=== PATIENT | female | born 2000 | race Caucasian/White ===

== ENCOUNTER 2018-01-17 10:01 | Emergency (ER) | payer BC, SELFPAY ==
[2018-01-17 10:44] LABS: Absolute Lymphocytes (CBC) 1.6 K/uL (0.7-4.9); Absolute Monocytes 0.3 K/uL (0.1-1.3); Basophils % 0.3 % (0-1.3); Eosinophils % 0.1 % (0-4.4); Hematocrit 44.6 % (36.0-45.0); Lymphocytes % 18.2 % (15.3-44.8); MCV 83.5 fL (80-100); MPV 7.9 fL (7.6-11.3); Monocytes % 3.1 % (3.3-12.3); RBC Red Blood Cell Count 5.34 M/uL (3.86-4.86)
[2018-01-17 11:01] LABS: ALT/SGPT 22 U/L (12-78); AST/SGOT 13 U/L (15-37); Albumin 4.4 g/dL (3.4-5.0); Alkaline Phosphatase 81 U/L (45-117); BUN Blood Urea Nitrogen 13 mg/dL (7-18); Bicarbonate 25 mmol/L (21-32); Bilirubin Direct 0.2 mg/dL (0-0.2); Bilirubin Total 0.9 mg/dL (0.2-1.0); Glucose Level 99 mg/dL (74-106); Lipase 158 U/L (73-393); Potassium 4.1 mmol/L (3.5-5.1); Protein, Total 7.9 g/dL (6.4-8.2); Sodium Level 140 mmol/L (136-145)
[2018-01-17] MEDS ORDERED: KETOROLAC 30 MG/ML INJ ONE (11:20)
[2018-01-17] MEDS ORDERED: NA CHLORIDE 0.9% 1,000 ML ONE (11:20)
--- NOTE | 2018-01-17 11:31 | EDPHYS ---
Physician Documentation [facility] Name: Honey Marie Age: 17 yrs Sex: Female : 2000 Arrival Date: 01/17/2018 Time: 10:04 Bed 13 Private MD: Javid Vu H ED Physician Ambrocio Villanueva HPI: 01/17 11:18 This 17 yrs old Female presents to ER via Ambulatory with complaints of kb Abdominal Pain. 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 - Social history:: Smoking status: Patient/guardian denies using tobacco. - Ebola Screening: : No symptoms or risks identified at this time. ROS: 11:16 Constitutional: Negative for fever, chills, and weight loss, Cardiovascular: Negative kb for chest pain, palpitations, and edema, Respiratory: Negative for shortness of breath, cough, wheezing, and pleuritic chest pain, Back: Negative for injury and pain, : Negative for injury, bleeding, discharge, and swelling, MS/Extremity: Negative for injury and deformity, Skin: Negative for injury, rash, and discoloration, Neuro: Negative for headache, weakness, numbness, tingling, and seizure. 11:16 Abdomen/GI: Positive for abdominal pain, Negative for nausea, vomiting, and diarrhea, constipation, abdominal cramps, abdominal distension, anorexia. Exam: 11:16 Constitutional: This is a well developed, well nourished patient who is awake, alert, kb and in no acute distress. Head/Face: Normocephalic, atraumatic. Chest/axilla: Normal chest wall appearance and motion. Nontender with no deformity. No lesions are appreciated. Cardiovascular: Regular rate and rhythm with a normal S1 and S2. No gallops, murmurs, or rubs. Normal PMI, no JVD. No pulse deficits. Respiratory: Lungs have equal breath sounds bilaterally, clear to auscultation and percussion. No rales, rhonchi or wheezes noted. No increased work of breathing, no retractions or nasal flaring. Abdomen/GI: Soft, non-tender, with normal bowel sounds. No distension or tympany. No guarding or rebound. No evidence of tenderness throughout. Back: No spinal tenderness. No costovertebral tenderness. Full range of motion. Skin: Warm, dry with normal turgor. Normal color with no rashes, no lesions, and no evidence of cellulitis. MS/ Extremity: Pulses equal, no cyanosis. Neurovascular intact. Full, normal range of motion. Neuro: Awake and alert, GCS 15, oriented to person, place, time, and situation. Cranial nerves II-XII grossly intact. Motor strength 5/5 in all extremities. Sensory grossly intact. Cerebellar exam normal. Normal gait. Vital Signs: 10:07 BP 131 / 80; Pulse 72; Resp 16; Temp 98.0; Pulse Ox 100% on R/A; Weight 56.7 kg; Height la1 5 ft. 2 in. (157.48 cm); 11:57 BP 120 / 70; Pulse 89; Resp 19; Pulse Ox 99% on R/A; aj 10:07 Body Mass Index 22.86 (56.70 kg, 157.48 cm) la1 MDM: 10:09 Patient medically screened. kb 11:16 Data reviewed: vital signs, nurses notes. Data interpreted: Pulse oximetry: on room air kb is 100 %. Interpretation: normal. Counseling: I had a detailed discussion with the patient and/or guardian regarding: the historical points, exam findings, and any diagnostic results supporting the discharge/admit diagnosis, lab results, the need for outpatient follow up, a family practitioner, to return to the emergency department if symptoms worsen or persist or if there are any questions or concerns that arise at home. 01/17 10:19 Order name: Basic Metabolic Panel; Complete Time: 11:02 kb 01/17 10:19 Order name: CBC with Diff; Complete Time: 10:49 kb 01/17 10: Order name: Hepatic Function; Complete Time: 11:02 kb 01/17 10:19 Order name: Lipase; Complete Time: 11:02 kb 01/17 11:08 Order name: Urine Dipstick--Ancillary (enter results) ag 01/17 11:08 Order name: Urine --Ancillary (enter results) ag 01/17 10:19 Order name: IV Saline Lock; Complete Time: 10:46 kb 01/17 10:19 Order name: Labs collected and sent; Complete Time: 10:46 kb 01/17 10:19 Order name: Urine Test (obtain specimen); Complete Time: 10:46 kb 01/17 10:19 Order name: Urine Dipstick-Ancillary (obtain specimen); Complete Time: 10:46 kb Administered Medications: 11:16 Drug: NS 0.9% 1000 ml Route: IV; Rate: 1000 ml; Site: right antecubital; aj 11:58 Follow up: Response: No adverse reaction; IV Status: Completed infusion; IV Intake: aj 1000ml 11:17 Drug: TORadol 30 mg Route: IVP; Site: right antecubital; aj 11:58 Follow up: Response: No adverse reaction; Pain is decreased aj Disposition: 14:44 Co-signature as Attending Physician, Ambrocio Villanueva MD I agree with the assessment and belen plan of care. Disposition: 01/17/18 11:30 Discharged to Home. Impression: Generalized abdominal pain. - Condition is Stable. - Discharge Instructions: Abdominal Pain, Adult, [id number]. - Prescriptions for Bentyl 20 mg Oral Tablet - take 1 tablet by ORAL route every 6 hours As needed; 20 tablet. - Medication Reconciliation Form, Thank You Letter, Antibiotic Education, Prescription Opioid Use form. - Follow up: Emergency Department; When: As needed; Reason: Worsening of condition. Follow up: Private Physician; When: 2 - 3 days; Reason: Recheck today's complaints, Continuance of care, Re-evaluation by your physician. Signatures: Dispatcher [employer] EDMO Marla Calabrese, CARE ASST-C CARE ASST-Farideh Jiang RN RN aj Anderson, Corey, MD MD cha Attema, Lee RN RN la1 Corrections: (The following items were deleted from the chart) 11:59 11:30 01/17/2018 11:30 Discharged to Home. Impression: Generalized abdominal pain. aj Condition is Stable. Forms are Medication Reconciliation Form, Thank You Letter, Antibiotic Education, Prescription Opioid Use. Follow up: Emergency Department; When: As needed; Reason: Worsening of condition. Follow up: Private Physician; When: 2 - 3 days; Reason: Recheck today's complaints, Continuance of care, Re-evaluation by your physician. kb
--- NOTE | 2018-01-17 11:31 | ER ---
Nurse's Notes [facility] Name: Honey Marie Age: 17 yrs Sex: Female : 2000 Arrival Date: 01/17/2018 Time: 10:04 Bed 13 Private MD: Javid Vu H Diagnosis: Generalized abdominal pain Presentation: 01/17 10:07 Presenting complaint: Patient states: generalized abd pain since 0200, nno N/V/D. la1 Transition of care: patient was not received from another setting of care. Onset of symptoms was January 17, 2018. Risk Assessment: Do you want to hurt yourself or someone else? Patient reports no desire to harm self or others. Initial Sepsis Screen: Does the patient meet any 2 criteria? No. Patient's initial sepsis screen is negative. Does the patient have a suspected source of infection? No. Patient's initial sepsis screen is negative. Care prior to arrival: None. 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 - Social history:: Smoking status: Patient/guardian denies using tobacco. - Ebola Screening: : No symptoms or risks identified at this time. Screenin:45 Abuse screen: Denies threats or abuse. Denies injuries from another. Nutritional aj screening: No deficits noted. Tuberculosis screening: No symptoms or risk factors identified. Fall Risk None identified. Assessment: 10:37 General: Appears in no apparent distress. comfortable, Behavior is calm, cooperative, aj appropriate for age. Pain: Complains of pain in right upper quadrant, left upper quadrant, right lower quadrant and left lower quadrant. Neuro: Level of Consciousness is awake, alert, obeys commands, Oriented to person, place, time, situation, Appropriate for age. Respiratory: Airway is patent Respiratory effort is even, unlabored, Respiratory pattern is regular, symmetrical. GI: Abdomen is flat, non-distended, Bowel sounds present X 4 quads. Abd is soft and non tender X 4 quads. Reports lower abdominal pain, upper abdominal pain. Derm: Skin is intact, is healthy with good turgor, Skin is pink, warm \T\ dry. normal. 11:57 Reassessment: Patient appears in no apparent distress at this time. No changes from aj previously documented assessment. Patient and/or family updated on plan of care and expected duration. Pain level reassessed. Patient is alert, oriented x 3, equal unlabored respirations, skin warm/dry/pink. Patient states feeling better. Patient states symptoms have improved. Vital Signs: 10:07 BP 131 / 80; Pulse 72; Resp 16; Temp 98.0; Pulse Ox 100% on R/A; Weight 56.7 kg; Height la1 5 ft. 2 in. (157.48 cm); 11:57 BP 120 / 70; Pulse 89; Resp 19; Pulse Ox 99% on R/A; aj 10:07 Body Mass Index 22.86 (56.70 kg, 157.48 cm) la1 ED Course: 10:04 Patient arrived in ED. rg4 10:04 Javid Vu MD is Private Physician. rg4 10:07 Triage completed. la1 10:08 [facility]C [facility] kb 10:08 Ambrocio Villanueva MD is Attending Physician. kb 10:08 Arm band placed on left wrist. la1 10:23 Farideh Sabillon, PARTH is Primary Nurse. aj 10:45 Patient has correct armband on for positive identification. Adult w/ patient. aj 10:45 Inserted saline lock: 20 gauge in right antecubital area, using aseptic technique. aj Blood collected. 11:57 No provider procedures requiring assistance completed. Patient did not have IV access aj during this emergency room visit. intact, bleeding controlled, No redness/swelling at site. Pressure dressing applied. Administered Medications: 11:16 Drug: NS 0.9% 1000 ml Route: IV; Rate: 1000 ml; Site: right antecubital; aj 11:58 Follow up: Response: No adverse reaction; IV Status: Completed infusion; IV Intake: aj 1000ml 11:17 Drug: TORadol 30 mg Route: IVP; Site: right antecubital; aj 11:58 Follow up: Response: No adverse reaction; Pain is decreased aj Intake: 11:58 IV: 1000ml; Total: 1000ml. aj Outcome: 11:30 Discharge ordered by . kb 11:57 Discharged to home ambulatory, with family. aj 11:57 Condition: good 11:57 Discharge instructions given to patient, family, Instructed on discharge instructions, follow up and referral plans. medication usage, Demonstrated understanding of instructions, follow-up care, medications, Prescriptions given X 1. 11:59 Patient left the ED. aj Signatures: Marla Calabrese, KITTY-C KITTY-Farideh Jiang RN Gomez Yan RN RN la1 Isabella Rosas 4
[2018-01-17 19:21] LABS: Urine Blood NEGATIVE (NEG); Urine Glucose NEGATIVE (NEG); Urine Protein NEGATIVE (NEG); Urine Specific Gravity 1.015 (1.005-1.030); Urine pH 5.5 (5.0-7.0)
== END 2018-01-17 11:59 | disposition home or self-care (01) ==
LOC: ER 10:01
DX: R10.84 Generalized abdominal pain (principal)
CPT/HCPCS: 36415; 80048; 80076; 81003; 81025; 83690; 85025; 96361; 96374; 99284; J7030

== ENCOUNTER 2024-08-15 23:38 | Emergency (ER) | payer SELFPAY ==
--- OUTSIDE RECORDS SUMMARY | 2024-08-15 23:41 | XMS REPORT | Continuity of Care Document ---
Author Name Unknown Address [address] [place] [address] [place] [address] [address] [place] [address] Care Team Providers Care Customer Operations Specialist Name Role Phone [email or web address] Attending Clinician Luanna lottie [email or web address] Admitting Clinician Unavaila ble Encounters Start Date/Time End Date/Time Encounter Type Admission Type Attending Clinicians Care Facility Care Department Encounter ID Source 2023-02-04 00:00:00 2023-02-04 00:00:00 Outpatient [email or web address] [email or web address] PRIV PRIV [id number] [facility] 2023-02-03 00:00:00 2023-02-03 00:00:00 Outpatient [email or web address] [email or web address] PRIV PRIV [id number] [facility]
[2024-08-16] MEDS ORDERED: FLUCONAZOLE 100 MG TAB ONE (00:14)
[2024-08-16 00:25] LABS: Specific Gravity > 1.030 (1.005-1.030); Sqamous Epithelial <5 /HPF (None Seen); Urine Bacteria None Seen /HPF (<20); Urine Bilirubin NEGATIVE (Negative); Urine Blood Negative (Negative); Urine Clarity Clear (Clear); Urine Color Light-Yellow (Yellow); Urine Glucose NEGATIVE (Negative); Urine Ketones NEGATIVE (Negative); Urine Micro Reflex YN NO BILL MICROSCOPIC; Urine Mucus Slight /HPF (None Seen); Urine Nitrite NEGATIVE (Negative); Urine Protein NEGATIVE (Negative); Urine RBC <5 /HPF (None Seen); Urine Urobilinogen Normal (Normal); Urine WBC <5 /HPF (<5)
[2024-08-16 00:26] LABS: Specific Gravity > 1.030 (1.005-1.030)
--- NOTE | 2024-08-16 00:40 | EDPHYS ---
Physician Documentation [facility] Name: Honey Marie Age: 23 yrs Sex: Female : 2000 Arrival Date: 08/15/2024 Time: 23:38 Bed 5 Private MD: ED Physician Tim Judd HPI: 08/15 23:51 This 23 yrs old Female presents to ER via Unassigned with complaints of sp4 Vaginal Itching. 08/16 05:37 23-year-old female presents with acute vaginal irritation. Patient reports she feels sp4 like she is getting yeast infection.. 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 - Infectious Disease History:: Denies. - Social history:: Smoking status: Patient denies any tobacco usage or history of. Patient/guardian denies using alcohol, street drugs. - Family history:: not pertinent. ROS: 08/16 05:37 Constitutional: Negative for fever, chills, and weight loss, positive vaginal sp4 irritation. Positive vaginal itching All other systems are negative, Exam: 05:37 Constitutional: This is a well developed, well nourished patient who is awake, alert, sp4 and in no acute distress. Head/Face: Normocephalic, atraumatic. Eyes: Pupils equal round and reactive to light, extra-ocular motions intact. Lids and lashes normal. Conjunctiva and sclera are not injected. Cornea within normal limits. Periorbital areas with no swelling, redness, or edema. ENT: Nares patent. No nasal discharge, no septal abnormalities noted. Tympanic membranes are normal and external auditory canals are clear. Oropharynx with no redness, swelling, or masses, exudates, or evidence of obstruction, uvula midline. Mucous membranes moist. Neck: Trachea midline, no thyromegaly or masses palpated, and no cervical lymphadenopathy. Supple, full range of motion without nuchal rigidity, or vertebral point tenderness. Chest/axilla: Normal chest wall appearance and motion. Nontender with no deformity. No lesions are appreciated. Cardiovascular: Regular rate and rhythm with a normal S1 and S2. No gallops, murmurs, or rubs. Normal PMI, no JVD. No pulse deficits. Respiratory: Lungs have equal breath sounds bilaterally, clear to auscultation and percussion. No rales, rhonchi or wheezes noted. No increased work of breathing, no retractions or nasal flaring. Abdomen/GI: Soft, with normal bowel sounds. No distension or tympany. No guarding or rebound. No evidence of tenderness throughout. Back: No spinal tenderness. No costovertebral tenderness. Female : Normal external genitalia. Patient has small amount of introital irritation. No sign of significant discharge, no ulcers or lesions. 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 Normal color with no rashes, no lesions, and no evidence of cellulitis. MS/ Extremity: Pulses equal, no cyanosis. Neurovascular intact. Full, normal range of motion. Neuro: Awake and alert, GCS 15, oriented to person, place, time, and situation. Cranial nerves II-XII grossly intact. Motor strength 5/5 in all extremities. Sensory grossly intact. Psych: Awake, alert, with orientation to person, place and time. Behavior, mood, and affect are within normal limits Vital Signs: 08/15 23:55 BP 123 / 72; Pulse 55; Resp 16; Temp 98.1; Pulse Ox 100% ; Weight 57.15 kg; Height 5 bm8 ft. 2 in. ; Pain 3/10; 08/16 00:49 BP 97 / 53; Pulse 51; Resp 20; Temp 98.1; Pulse Ox 100% ; Pain 3/10; bm8 08/15 23:55 Body Mass Index 23.05 (57.15 kg, 157.48 cm) bm8 08/15 23:55 Pain Scale: Adult bm8 08/16 00:49 Pain Scale: Adult bm8 [place] Coma Score: 08/15 23:59 Eye Response: spontaneous(4). Motor Response: obeys commands(6). Verbal Response: bm8 oriented(5). Total: 15. 08/16 00:49 Eye Response: spontaneous(4). Motor Response: obeys commands(6). Verbal Response: bm8 oriented(5). Total: 15. 05:37 Eye Response: spontaneous(4). Motor Response: obeys commands(6). Verbal Response: sp4 oriented(5). Total: 15. MDM: 00:39 Medical Screening Exam initiated sp4 05:37 Differential diagnosis: stacie infection, cervicitis, dysmenorrhea, urinary tract sp4 infection, vaginosis. Data reviewed: vital signs, nurses notes. Consideration of Admission/Observation Escalation of care including admission/observation considered. ED course: Patient will be prescribed fluconazole 200 mg daily for 10 days . 08/15 23:58 Order name: Test, Urine; Complete Time: 00:38 sp4 08/15 23:58 Order name: UA W/ Microscopic; Complete Time: 00:38 sp4 08/16 00:26 Order name: Glucose, Ancillary Testing; Complete Time: 00:38 EDMS 08/16 00:04 Order name: Accucheck Blood Glucose; Complete Time: 00:16 sp4 Administered Medications: 00:22 Drug: Fluconazole PO 200 mg PO once Route: PO; lg3 00:49 Follow up: Response: No adverse reaction bm8 Disposition Summary: 08/16/24 00:39 Discharge Ordered Notes: Location: Home sp4 Problem: new sp4 Symptoms: have improved sp4 Condition: Stable sp4 Diagnosis - Acute vaginal candidiasis sp4 Followup: sp4 - With: Sarah Garcia MD - When: 7 - 10 days - Reason: Recheck today's complaints Discharge Instructions: - Discharge Summary Sheet sp4 - Vaginal Yeast Infection, Adult sp4 Forms: - Patient Portal Instructions sp4 Prescriptions: - Fluconazole 200 mg Oral tablet - take 1 tablet ORAL route once daily for 10 days; 10 tablet; Refills: 0, Product sp4 Selection Permitted Signatures: Dispatcher [employer] Mara Bahena RN RN [email or web address] Tim Judd MD MD sp4 Ervin Salinas RN RN bm8 Corrections: (The following items were deleted from the chart) 08/15 23:57 23:56 Allergies: No Known Allergies; bm8 bm8
--- NOTE | 2024-08-16 00:40 | ER ---
Nurse's Notes [facility] Name: Honey Marie Age: 23 yrs Sex: Female : 2000 Arrival Date: 08/15/2024 Time: 23:38 Bed 5 Private MD: Diagnosis: Acute vaginal candidiasis Presentation: 08/15 23:55 Chief complaint: Patient states: I think I have a yeast infection... again. This is the bm8 2nd one this month. Coronavirus screen: At this time, the client does not indicate any symptoms associated with coronavirus-19. Ebola Screen: Patient negative for fever greater than or equal to 101.5 degrees Fahrenheit, and additional compatible Ebola Virus Disease symptoms Patient denies exposure to infectious person. Patient denies travel to an Ebola-affected area in the 21 days before illness onset. No symptoms or risks identified at this time. Initial Sepsis Screen: Does the patient meet any 2 criteria? No. Patient's initial sepsis screen is negative. Does the patient have a suspected source of infection? No. Patient's initial sepsis screen is negative. Risk Assessment: Do you want to hurt yourself or someone else? Patient reports no desire to harm self or others. Onset of symptoms was August 13, 2024. 23:55 Method Of Arrival: Ambulatory bm8 23:55 Acuity: RY 4 bm8 Triage Assessment: 23:56 General: Appears in no apparent distress. comfortable, Behavior is calm, cooperative, bm8 appropriate for age. Pain: Complains of pain in groin Pain currently is 3 out of 10 on a pain scale. EENT: No deficits noted. Neuro: No deficits noted. Cardiovascular: No deficits noted. Respiratory: No deficits noted. GI: No deficits noted. : Urine is clear, Reports burning with urination, urinary frequency. Derm: No deficits noted. Musculoskeletal: No deficits noted. KETTLEMAN: 23:56 unknown bm8 Historical: - Allergies: 23:56 PENICILLINS; bm8 - Home Meds: 23:56 None [Active]; bm8 - PMHx: 23:56 None; bm8 - PSHx: 23:56 None; bm8 - Immunization history:: Adult Immunizations up to date. - Infectious Disease History:: Denies. - Social history:: Smoking status: Patient denies any tobacco usage or history of. Patient/guardian denies using alcohol, street drugs. - Family history:: not pertinent. Screenin:59 [facility] ED Fall Risk Assessment (Adult) History of falling in the last 3 months, bm8 including since admission No falls in past 3 months (0 pts) Confusion or Disorientation No (0 pts) Intoxicated or Sedated No (0 pts) Impaired Gait No (0 pts) Mobility Assist Device Used No (0 pt) Altered Elimination No (0 pt) Score/Fall Risk Level 0 - 2 = Low Risk Oriented to surroundings, Maintained a safe environment, Educated pt \T\ family on fall prevention, incl call for assistance when getting out of bed, Assessed \T\ reinforced patient's understanding of fall precautions, Hourly rounding (assess needs \T\ fall precautionary measures) done, Used ambulatory aids as needed (educated on \T\ assisted with), Used gait belt as appropriate. Abuse screen: Denies threats or abuse. Nutritional screening: No deficits noted. Tuberculosis screening: No symptoms or risk factors identified. Assessment: 08/16 00:01 Reassessment: see triage assessment. bm8 00:49 Reassessment: Patient appears in no apparent distress at this time. No changes from bm8 previously documented assessment. Patient and/or family updated on plan of care and expected duration. Pain level reassessed. Patient is alert, oriented x 3, equal unlabored respirations, skin warm/dry/pink. Vital Signs: 08/15 23:55 BP 123 / 72; Pulse 55; Resp 16; Temp 98.1; Pulse Ox 100% ; Weight 57.15 kg; Height 5 bm8 ft. 2 in. ; Pain 3/10; 08/16 00:49 BP 97 / 53; Pulse 51; Resp 20; Temp 98.1; Pulse Ox 100% ; Pain 3/10; bm8 08/15 23:55 Body Mass Index 23.05 (57.15 kg, 157.48 cm) bm8 08/15 23:55 Pain Scale: Adult bm8 08/16 00:49 Pain Scale: Adult bm8 [place] Coma Score: 08/15 23:59 Eye Response: spontaneous(4). Motor Response: obeys commands(6). Verbal Response: bm8 oriented(5). Total: 15. 08/16 00:49 Eye Response: spontaneous(4). Motor Response: obeys commands(6). Verbal Response: bm8 oriented(5). Total: 15. 05:37 Eye Response: spontaneous(4). Motor Response: obeys commands(6). Verbal Response: sp4 oriented(5). Total: 15. ED Course: 08/15 23:41 Patient arrived in ED. gm2 23:51 Tim Judd MD is Attending Physician. sp4 23:55 Ervin Salinas, RN is Primary Nurse. bm8 23:56 Triage completed. bm8 23:56 Arm band placed on right wrist. bm8 23:59 Patient has correct armband on for positive identification. Bed in low position. Call bm8 light in reach. Client placed on continuous cardiac and pulse oximetry monitoring. NIBP monitoring applied. Pulse ox on. NIBP on. Door closed. Noise minimized. Warm blanket given. Pillow given. Verbal reassurance given. Head of bed elevated. 23:59 No provider procedures requiring assistance completed. Patient did not have IV access bm8 during this emergency room visit. 05 00:39 Sarah Garcia MD is Referral Physician. sp4 00:49 Provided Education on: post er care. bm8 00:49 Patient maintains SpO2 saturation greater than 95% on room air. bm8 Administered Medications: 00:22 Drug: Fluconazole PO 200 mg PO once Route: PO; lg3 00:49 Follow up: Response: No adverse reaction bm8 Medication: 08/15 23:59 VIS not applicable for this client. bm8 Outcome: 08/16 00:39 Discharge ordered by . sp4 00:49 Discharged to home ambulatory, with family, bm8 00:49 Condition: stable 00:49 Discharge instructions given to patient, family, Instructed on discharge instructions, follow up and referral plans. no drinking with medication, no driving heavy equipment, medication usage, Demonstrated understanding of instructions, follow-up care, medications, 00:53 Patient left the ED. bm8 Signatures: Mara Solorzano RN RN lg3 Potepalov, Sergey, MD MD sp4 Susan Eller gm2 Ervin Salinas, RN RN bm8 Corrections: (The following items were deleted from the chart) 08/15 23:57 23:56 Allergies: No Known Allergies; bm8 bm8
[2024-08-16 00:57] VITALS: TEMP 98.1; O2SAT 100
[2024-08-16 00:59] VITALS: BP 97/53
== END 2024-08-16 00:53 | disposition home or self-care (01) ==
LOC: ER 23:38
DX: B37.31 Acute candidiasis of vulva and vagina (principal)
CPT/HCPCS: 81001; 81025; 82947; 99284

== ENCOUNTER 2025-01-10 04:07 | Emergency (ER) | payer SELFPAY ==
[2025-01-10] MEDS ORDERED: NA CHLORIDE 0.9% 1,000 ML ONE ×2 (04:36→05:11)
[2025-01-10] MEDS ORDERED: ONDANSETRON 4 MG/2 ML VIAL ONE (04:36)
[2025-01-10] MEDS ORDERED: METOCLOPRAMIDE 10 MG/2mL INJ ONE (05:10)
[2025-01-10] MEDS ORDERED: KETOROLAC 30 MG/ML INJ ONE (05:10)
[2025-01-10] MEDS ORDERED: FAMOTIDINE 20 MG/2 ML VIAL IV ONE (05:11)
[2025-01-10] MEDS ORDERED: DICYCLOMINE HCL 20 MG/2 ML AMP IM ONE (05:11)
[2025-01-10 05:40] LABS: Influenza A Ag Negative; Influenza B Ag Negative; SARS-CoV-2 Antigen Rapid Res Negative (Negative)
[2025-01-10 05:56] LABS: METHAMPHETAM NEGATIVE (NEGATIVE); THC Cannibis NEGATIVE (NEGATIVE)
[2025-01-10 06:45] LABS: Urine Microscopic Reflex YN NO UMIC
[2025-01-10 06:51] LABS: ALT/SGPT 26.0 U/L (13-56); AST/SGOT 16.0 U/L (15-37); Absolute Lymphocytes (CBC) 1.2 K/uL (0.7-4.9); Albumin 4.1 g/dL (3.4-5.0); Albumin/Globulin Ratio 1.2 (1.1-1.8); Alkaline Phosphatase 62.0 U/L (45-117); Anion Gap 14.7 mEq/L (5.0-15.0); BUN Blood Urea Nitrogen 16.0 mg/dL (7-18); Globulin 3.3 g/dL (2.3-3.5); Glucose Level 131.0 mg/dL (74-106); Hematocrit 42.8 % (36.0-45.0); Hemoglobin 14.9 g/dL (12.0-15.0); Lipase 33.0 U/L (13-75); MCH 29.8 pg (27.0-35.0); MCHC 34.9 g/dL (32.0-36.0); MCV 85.3 fL (80-100); MPV 8.7 fL (7.6-11.3); Nucleated RBC Absolute Count 0.0 (0-0); Nucleated Red Blood Cells % 0.1 % (0-0); Potassium 3.7 mEq/L (3.5-5.1); RBC Red Blood Cell Count 5.01 M/uL (3.86-4.86); White Blood Count 18.60 thou/uL (4.3-10.9)
--- NOTE | 2025-01-10 06:57 | ER ---
Nurse's Notes [facility] Name: Honey Marie Age: 24 yrs Sex: Female : 2000 Arrival Date: 01/10/2025 Time: 04:07 Bed 18 Private MD: Diagnosis: Acute viral gastroenteritis, acute nausea and vomiting Presentation: 01/10 04:42 Chief complaint: Patient states: started vomiting at 9 pm. Coronavirus screen: Client vc1 denies travel out of the [place] in the last 14 days. At this time, the client does not indicate any symptoms associated with coronavirus-19. Ebola Screen: Patient negative for fever greater than or equal to 101.5 degrees Fahrenheit, and additional compatible Ebola Virus Disease symptoms Patient denies exposure to infectious person. Patient denies travel to an Ebola-affected area in the 21 days before illness onset. No symptoms or risks identified at this time. Initial Sepsis Screen: Does the patient meet any 2 criteria? No. Patient's initial sepsis screen is negative. Does the patient have a suspected source of infection? No. Patient's initial sepsis screen is negative. Risk Assessment: Do you want to hurt yourself or someone else? Patient reports no desire to harm self or others. Onset of symptoms was January 09, 2025 at 21:00. 04:42 Method Of Arrival: Ambulatory vc1 04:42 Acuity: RY 3 vc1 Triage Assessment: 04:47 General: Appears in no apparent distress. uncomfortable, Behavior is calm, cooperative, vc1 appropriate for age. Pain: Denies pain. EENT: No deficits noted. No signs and/or symptoms were reported regarding the EENT system. Neuro: Level of Consciousness is awake, alert, obeys commands, Oriented to person, place, time, situation, Appropriate for age. Cardiovascular: Capillary refill < 3 seconds Patient's skin is warm and dry. Respiratory: Airway is patent Respiratory effort is even, unlabored, Respiratory pattern is regular, symmetrical. GI: Abdomen is flat, Pt is actively vomiting Reports vomiting. : No deficits noted. No signs and/or symptoms were reported regarding the genitourinary system. Derm: Skin is intact, is healthy with good turgor, Skin is dry, Skin is normal, Skin temperature is warm. Musculoskeletal: Circulation, motion, and sensation intact. Range of motion: intact in all extremities. 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 - Infectious Disease History:: Denies. - Social history:: Smoking status: Patient denies any tobacco usage or history of. - Family history:: not pertinent. Screenin:45 [facility] ED Fall Risk Assessment (Adult) History of falling in the last 3 months, vc1 including since admission No falls in past 3 months (0 pts) Confusion or Disorientation No (0 pts) Intoxicated or Sedated No (0 pts) Impaired Gait No (0 pts) Mobility Assist Device Used No (0 pt) Altered Elimination No (0 pt) Score/Fall Risk Level 0 - 2 = Low Risk Oriented to surroundings, Maintained a safe environment, Educated pt \T\ family on fall prevention, incl call for assistance when getting out of bed, Assessed \T\ reinforced patient's understanding of fall precautions, Hourly rounding (assess needs \T\ fall precautionary measures) done. Abuse screen: Denies threats or abuse. Nutritional screening: No deficits noted. Tuberculosis screening: No symptoms or risk factors identified. Assessment: 04:51 Pain: Complains of pain in generalized body aches and abdominal pain Pain does not tb4 radiate. Pain currently is 8 out of 10 on a pain scale. Quality of pain is described as crampy, Pain began suddenly. Neuro: Level of Consciousness is awake, alert, obeys commands, Oriented to person, place, time, situation, Moves all extremities. Full function Gait is steady, Speech is normal, Facial symmetry appears normal. Cardiovascular: Patient's skin is warm and dry. Respiratory: Airway is patent Respiratory effort is even, unlabored, Respiratory pattern is regular, symmetrical. GI: Abdomen is flat, non-distended, Bowel sounds present X 4 quads. Reports cramping, diarrhea, nausea, vomiting. : No deficits noted. No signs and/or symptoms were reported regarding the genitourinary system. EENT: No deficits noted. No signs and/or symptoms were reported regarding the EENT system. Derm: No deficits noted. No signs and/or symptoms reported regarding the dermatologic system. Skin is intact, is healthy with good turgor, Skin is dry, Skin is normal, Skin temperature is warm. Musculoskeletal: No deficits noted. No signs and/or symptoms reported regarding the musculoskeletal system. Circulation, motion, and sensation intact. Range of motion: intact in all extremities. 05:34 General: Appears uncomfortable, Behavior is calm, cooperative. tb4 Vital Signs: 04:42 Pulse 94; Resp 16; Temp 98.5; Pulse Ox 99% ; Weight 57.15 kg; Height 5 ft. 2 in. ; vc1 05:00 BP 119 / 77; Pulse 56; Resp 17; Pulse Ox 99% on R/A; Weight 57.61 kg; Height 5 ft. 2 tb4 in. ; Pain 8/10; 06:16 BP 106 / 64; Pulse 91; Resp 17; Pulse Ox 99% on R/A; Pain 0/10; tb4 07:15 BP 112 / 62; Pulse 70; Resp 16; Pulse Ox 99% on R/A; ar8 05:00 Body Mass Index 23.23 (57.61 kg, 157.48 cm) tb4 05:00 Pain Scale: Adult tb4 06:16 Pain Scale: Adult tb4 Maribell Coma Score: 01/11 01:54 Eye Response: spontaneous(4). Motor Response: obeys commands(6). Verbal Response: sp4 oriented(5). Total: 15. ED Course: 01/10 04:11 Patient arrived in ED. gm2 04:13 Tim Judd MD is Attending Physician. sp4 04:39 Inserted saline lock: 20 gauge in right antecubital area, using aseptic technique. tb4 Blood collected. Flushed with 10 mL NS. 04:44 Triage completed. vc1 04:45 Arm band placed on right wrist. vc1 04:47 Patient has correct armband on for positive identification. Bed in low position. Call vc1 light in reach. Provided Education on: plan of care. 05:00 No provider procedures requiring assistance completed. tb4 05:34 Initial lab(s) drawn, by me, sent to lab. Urine collected: clean catch specimen, clear, tb4 COVID swab sent to lab. 07:20 IV discontinued, intact, bleeding controlled, No redness/swelling at site. Pressure ar8 dressing applied. Administered Medications: 04:50 Drug: Ondansetron IVP 8 mg IVP once; over 2 minutes Route: IVP; Site: right antecubital;tb4 06:14 Follow up: Response: No adverse reaction; Nausea is decreased tb4 04:50 Drug: NS 0.9% IV 1000 ml IV at 1000 ml once; to be given as a bolus over 60 minutes tb4 Route: IV; Rate: 1000 ml; Site: right antecubital; 05:30 Follow up: Response: No adverse reaction; IV Status: Completed infusion tb4 05:29 Drug: metoCLOPramide IVP 10 mg IVP once; over 1 to 2 minutes Route: IVP; Site: right tb4 antecubital; 06:14 Follow up: Response: No adverse reaction; Pain is decreased tb4 05:29 Drug: Dicyclomine IM 20 mg IM once Route: IM; Site: right deltoid; tb4 06:14 Follow up: Response: No adverse reaction tb4 05:29 Drug: Ketorolac IVP 30 mg IVP once Route: IVP; Site: right antecubital; tb4 06:13 Follow up: Response: No adverse reaction; Pain is decreased tb4 05:29 Drug: Famotidine IVP 20 mg IVP once; dilute with 10 mL 0.9% NaCl; give over 2 minutes tb4 Route: IVP; Site: right antecubital; 06:13 Follow up: Response: No adverse reaction tb4 05:30 Drug: NS 0.9% IV 1000 ml IV at 1 bolus Per protocol; to be given as a bolus over 60 tb4 minutes Route: IV; Rate: 1 bolus; Site: right antecubital; 06:15 Follow up: Response: No adverse reaction; IV Status: Completed infusion tb4 Medication: 04:47 VIS not applicable for this client. vc1 Outcome: 06:56 Discharge ordered by . spJoaquim 07:20 Discharged to home ambulatory, ar8 07:20 Condition: stable 07:20 Discharge instructions given to patient, family, Instructed on discharge instructions, ar8 follow up and referral plans. medication usage, Demonstrated understanding of instructions, follow-up care, medications, Prescriptions given X 3, 07:27 Patient left the ED. ar8 Signatures: Odalys Holder RN RN vc1 Tim Judd MD MD sp4 Susan Eller gm2 Lisa Buckley RN RN tb4 Colby Flor RN RN ar8 Corrections: (The following items were deleted from the chart) 07:26 Discharged to home ambulatory, ar8 ar8 07:26 Condition: stable ar8 ar8
--- NOTE | 2025-01-10 06:57 | EDPHYS ---
Physician Documentation [facility] Name: Honey Marie Age: 24 yrs Sex: Female : 2000 Arrival Date: 01/10/2025 Time: 04:07 Bed 18 Private MD: ED Physician Tim Judd HPI: 01/10 04:13 This 24 yrs old Other Race Female presents to ER via Unassigned with complaints of sp4 Nausea/Vomiting. 01/11 01:54 24-year-old female presents with complaint of nausea vomiting. Moderate to severe sp4 vomiting associated with abdominal discomfort. Reported associated diarrhea.. 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 - Infectious Disease History:: Denies. - Social history:: Smoking status: Patient denies any tobacco usage or history of. - Family history:: not pertinent. ROS: 01/11 01:54 Constitutional: Negative for fever, chills, and weight loss, positive nausea vomiting sp4 diarrhea All other systems are negative, Exam: 01:54 Constitutional: This is a well developed, well nourished patient who is awake, alert, sp4 ill-appearing but nontoxic, dry heaving and vomiting on exam Head/Face: Normocephalic, atraumatic. Eyes: Pupils equal round and reactive to light, extra-ocular motions intact. Lids and lashes normal. Conjunctiva and sclera are not injected. Cornea within normal limits. Periorbital areas with no swelling, redness, or edema. ENT: Nares patent. No nasal discharge, no septal abnormalities noted. Tympanic membranes are normal and external auditory canals are clear. Oropharynx with no redness, swelling, or masses, exudates, or evidence of obstruction, uvula midline. Mucous membranes moist. Neck: Trachea midline, no thyromegaly or masses palpated, and no cervical lymphadenopathy. Supple, full range of motion without nuchal rigidity, or vertebral point tenderness. Chest/axilla: Normal chest wall appearance and motion. Nontender with no deformity. No lesions are appreciated. Cardiovascular: Regular rate and rhythm with a normal S1 and S2. No gallops, murmurs, or rubs. No pulse deficits. Respiratory: Lungs have equal breath sounds bilaterally, clear to auscultation and percussion. No rales, rhonchi or wheezes noted. No increased work of breathing, no retractions or nasal flaring. Abdomen/GI: Soft, with normal bowel sounds. No distension or tympany. No guarding or rebound. No evidence of tenderness throughout. Back: No spinal tenderness. No costovertebral tenderness. Skin: Warm, dry with normal turgor. Normal color with no rashes, no lesions, and no evidence of cellulitis. MS/ Extremity: Pulses equal, no cyanosis. Neurovascular intact. Full, normal range of motion. Neuro: Awake and alert, GCS 15, oriented to person, place, time, and situation. Cranial nerves II-XII grossly intact. Motor strength 5/5 in all extremities. Sensory grossly intact. Psych: Awake, alert, with orientation to person, place and time. Behavior, mood, and affect are within normal limits Vital Signs: 01/10 04:42 Pulse 94; Resp 16; Temp 98.5; Pulse Ox 99% ; Weight 57.15 kg; Height 5 ft. 2 in. ; vc1 05:00 BP 119 / 77; Pulse 56; Resp 17; Pulse Ox 99% on R/A; Weight 57.61 kg; Height 5 ft. 2 tb4 in. ; Pain 8/10; 06:16 BP 106 / 64; Pulse 91; Resp 17; Pulse Ox 99% on R/A; Pain 0/10; tb4 07:15 BP 112 / 62; Pulse 70; Resp 16; Pulse Ox 99% on R/A; ar8 05:00 Body Mass Index 23.23 (57.61 kg, 157.48 cm) tb4 05:00 Pain Scale: Adult tb4 06:16 Pain Scale: Adult tb4 Maribell Coma Score: 01/11 01:54 Eye Response: spontaneous(4). Motor Response: obeys commands(6). Verbal Response: sp4 oriented(5). Total: 15. MDM: 01/10 04:14 Medical Screening Exam initiated sp4 01/11 01:56 Differential diagnosis: Nonspecific abd pain, gastritis, diverticulitis, viral sp4 gastroenteritis, gastroenteritis. Data reviewed: vital signs, nurses notes, lab test result(s), electrolytes, hepatic panel. 01:57 Consideration of Admission/Observation Escalation of care including sp4 admission/observation considered. Management of patient was discussed with the following:. ED course: Patient much improved after IV hydration and medications. Stable for discharge home. Exam and findings consistent with acute viral gastroenteritis. Advise clear liquid diet for 24 hours. Return to ER precautions discussed with patient in detail. 01/10 04:13 Order name: CBC with Diff; Complete Time: 01:57 sp4 01/10 04:13 Order name: CMP; Complete Time: 06:53 sp4 01/10 04:13 Order name: Lipase; Complete Time: 06:53 sp4 01/10 04:13 Order name: Test, Urine; Complete Time: 06:47 sp4 01/10 04:14 Order name: UA Rfx Duke Cult if indicated; Complete Time: 06:46 sp4 01/10 04:37 Order name: Urine Drug Screen; Complete Time: 05:58 sp4 01/10 04:37 Order name: CRP; Complete Time: 05:55 sp4 01/10 04:37 Order name: COVID-19 Ag + Flu A+B Ag; Complete Time: 05:55 sp4 01/10 07:07 Order name: CBC Smear Scan; Complete Time: 01:57 EDMS 01/10 04:13 Order name: IV Saline Lock; Complete Time: 04:51 sp4 01/10 04:13 Order name: Labs collected and sent; Complete Time: 04:51 sp4 Administered Medications: 01/10 04:50 Drug: Ondansetron IVP 8 mg IVP once; over 2 minutes Route: IVP; Site: right antecubital;tb4 06:14 Follow up: Response: No adverse reaction; Nausea is decreased tb4 04:50 Drug: NS 0.9% IV 1000 ml IV at 1000 ml once; to be given as a bolus over 60 minutes tb4 Route: IV; Rate: 1000 ml; Site: right antecubital; 05:30 Follow up: Response: No adverse reaction; IV Status: Completed infusion tb4 05:29 Drug: metoCLOPramide IVP 10 mg IVP once; over 1 to 2 minutes Route: IVP; Site: right tb4 antecubital; 06:14 Follow up: Response: No adverse reaction; Pain is decreased tb4 05:29 Drug: Dicyclomine IM 20 mg IM once Route: IM; Site: right deltoid; tb4 06:14 Follow up: Response: No adverse reaction tb4 05:29 Drug: Ketorolac IVP 30 mg IVP once Route: IVP; Site: right antecubital; tb4 06:13 Follow up: Response: No adverse reaction; Pain is decreased tb4 05:29 Drug: Famotidine IVP 20 mg IVP once; dilute with 10 mL 0.9% NaCl; give over 2 minutes tb4 Route: IVP; Site: right antecubital; 06:13 Follow up: Response: No adverse reaction tb4 05:30 Drug: NS 0.9% IV 1000 ml IV at 1 bolus Per protocol; to be given as a bolus over 60 tb4 minutes Route: IV; Rate: 1 bolus; Site: right antecubital; 06:15 Follow up: Response: No adverse reaction; IV Status: Completed infusion tb4 Disposition Summary: 01/10/25 06:56 Discharge Ordered Notes: Location: Home sp4 Problem: new sp4 Symptoms: have improved sp4 Condition: Stable sp4 Diagnosis - Acute viral gastroenteritis, acute nausea and vomiting sp4 Followup: sp4 - With: Private Physician - When: 7 - 10 days - Reason: Recheck today's complaints Discharge Instructions: - Discharge Summary Sheet sp4 - Viral Gastroenteritis, Adult, [id number] sp4 - Clear Liquid Diet, Adult, [id number] sp4 Forms: - Work release form sp4 - Patient Portal Instructions sp4 Prescriptions: - famotidine 20 mg Oral tablet - take 2 tablet ORAL route daily for 30 days; 60 tablet; Refills: 0, Product sp4 Selection Permitted - Lomotil 2.5-0.025 mg Oral tablet - take 1 tablet ORAL route every 6 hours As needed PRN diarrhea; 30 tablet; sp4 Refills: 0, Product Selection Permitted - ondansetron 8 mg Oral Tablet,disintegrating - take 1 tablet ORAL route every 8 hours PRN nausea; 30 tablet; Refills: 0, sp4 Product Selection Permitted Signatures: [facility] Odalys Rosenbaum, RN RN vc1 Tim Judd MD MD sp4 Lisa Buckley RN RN tb4 Corrections: (The following items were deleted from the chart) 04: 04:14 CBC+H.LAB.BRZ ordered. EDMS EDMS 04:14 04:14 COMPREHENSIVE METABOLIC PANEL+C.LAB.BRZ ordered. EDMS EDMS 04:14 04:14 LIPASE+C.LAB.BRZ ordered. EDMS EDMS 04: 04:14 Test, Urine+UC.LAB.BRZ ordered. EDMS EDMS
[2025-01-10 07:43] VITALS: TEMP 98.5; O2SAT 99
[2025-01-10 07:48] VITALS: BP 112/62
[2025-01-10 10:44] LABS: White Blood Cell Scan OK (OK)
[2025-01-10 10:45] LABS: Blood Morphology Comment NOT SEEN (NOT SEEN)
== END 2025-01-10 07:27 | disposition home or self-care (01) ==
LOC: ER 04:07
DX: K52.9 Noninfective gastroenteritis and colitis, unspecified (principal); R11.2 Nausea with vomiting, unspecified; Z88.0 Allergy status to penicillin; Z11.52 Encounter for screening for COVID-19
CPT/HCPCS: 36415; 80053; 80307; 81003; 81025; 83690; 85025; 86140; 87428; 96361; 96372; 96374; 96375; 99284; J0500; J1885; J2405; J2765; J7030